=== PATIENT | female | born 1930 | race Caucasian/White ===

== ENCOUNTER 2017-06-13 19:01 | Inpatient (IN) | payer MEDICARE, OTHER ==
[~2017-06-13] VITALS: Ht 165.1 cm; Wt 70.3 kg
--- NOTE | 2017-06-13 19:30 | NUR ---
Received patient from day shift RN. Patient is a new admit from [facility] S/P Dandre placement of the left hip by Dr. Jean. Patient was admitted due to Left hip fx S/P fall. Patient is A/O x4, able to make needs known, with no signs of sob or acute distress. pertinent assessment completed. Vital signs stable upon admission. Oriented patient to unit. MD aware of patient's arrival to unit. Left hip incision clean, dry, with no s/s of infection or redness. Dressing clean & intact. Bed in low position x2 side rails up. Call light within reach of pt. Will continue to monitor pt through shift.
--- NOTE | 2017-06-13 20:15 | NUR ---
Dr. Mann in facility. Examined patient. MD made aware of patient's prescription order for [place] 5/325mg 1-2 tabs in admission packet. Per MD he will input new orders for patient. New orders in for Tramadol 50mg PO Q6HPRN and Percocet for 5-325mg 2 tablet Q6HPRN. New orders noted.
[2017-06-13] MEDS ORDERED: Z GUARD REMEDY PASTE 57 GM TUBE TOP PRN (21:00)
[2017-06-13] MEDS ORDERED: ERGO500014 PO (21:04)
[2017-06-13] MEDS ORDERED: ACET-2154 PO (21:04)
[2017-06-13] MEDS ORDERED: RIVA20TA PO (21:04)
[2017-06-13] MEDS ORDERED: SENN-167 PO (21:04)
--- NOTE | 2017-06-13 21:15 | NUR ---
Spoke with Dr. Olvera and made aware of new admission and med recon. Per MD, he will do med recon.
[2017-06-13 21:25] VITALS: BP 115/59
--- NOTE | 2017-06-13 21:30 | NUR ---
Patient refused removal of BLE dressing for assessment & photos. Will endorse to day shift RN to f/u with MD orders for removal & care of BLE S/P skin graft.
[2017-06-13] MEDS: OXYCODONE/APAP 5-325 MG TABLET PO PRN (21:35)
[2017-06-14] MEDS: TRAMADOL HCL 50 MG TABLET PO PRN ×2 (03:33→21:11)
--- NOTE | 2017-06-14 05:40 | NUR ---
Patient slept intermittently through shift. Some complaints of left hip pain. Administered pain meds as ordered per MD. vital signs remained WNL. All needs attended to. changed patient & kept clean, dry. Left wrist 20G IV removed. patient tolerated well. Left hip incision kept clean, dry, intact. changed left hip dressing. safety measures implemented. bed in low position, locked, x2 side rails up. call light within reach. will endorse to day shift RN.
[2017-06-14] MEDS: OXYCODONE/APAP 5-325 MG TABLET PO PRN ×3 (06:00→17:30)
[2017-06-14 07:05] LABS: BASOPHILS % (AUTO) 0.7 % (0.0-2.0); EOSINOPHILS # (AUTO) 0.3 K/uL (0.0-0.7); EOSINOPHILS % (AUTO) 5.9 % (0.0-7.0); HEMATOCRIT 24.5 % (31.2-41.9); HEMOGLOBIN 8.1 g/dL (10.9-14.3); LYMPHOCYTES # (AUTO) 1.2 K/uL (20.0-40.0); LYMPHOCYTES % (AUTO) 20.9 % (20.5-51.5); MEAN CORPUSCULAR HEMOGLOBIN 29.3 uug (24.7-32.8); MEAN CORPUSCULAR HGB CONC 33 g/dL (32.3-35.6); MONOCYTES # (AUTO) 0.7 K/uL (2.0-10.0); MONOCYTES % (AUTO) 12.4 % (0.0-11.0); NEUTROPHILS # (AUTO) 3.3 K/uL (1.8-8.9); NEUTROPHILS % (AUTO) 60.1 % (38.5-71.5); PLATELET COUNT (AUTO) 267 K/uL (179-408); RED BLOOD CELL COUNT(AUTO) 2.76 MIL/uL (3.63-4.92); WHITE BLOOD COUNT (AUTO) 5.5 K/uL (3.8-11.8)
[2017-06-14 07:11] LABS: CARBON DIOXIDE 28 mmol/L (21-32); CHLORIDE 104 mmol/L (98-107); CREATININE 0.9 mg/dL (0.6-1.3); GLUCOSE 104 mg/dL (74-106); MAGNESIUM 1.8 mg/dL (1.8-2.4); PHOSPHOROUS 4.3 mg/dL (2.5-4.9); POTASSIUM 4.1 mmol/L (3.5-5.1); UREA NITROGEN, BLOOD 13 mg/dL (7-18)
[2017-06-14 08:05] VITALS: BP 118/70
[2017-06-14] MEDS ORDERED: ACETAMINOPHEN 325 MG TABLET PO PRN (12:45)
[2017-06-14] MEDS: SENNOSIDES 1 TABLET PO SCH (14:10)
[2017-06-14] MEDS: RIVAROXABAN 10 MG TABLET PO SCH (17:26)
--- NOTE | 2017-06-14 19:30 | NUR ---
Received patient from day shift RN. Patient stable at start of shift, no acute distress noted. Daughter currently at bedside. pertinent assessment completed. Assessed left hip pain level at start of shift. no current pain noted. Vital signs WNL. Bed in low position x2 side rails up. call light within reach. will continue to monitor pt through shift.
[2017-06-14 20:20] VITALS: BP 120/64
[2017-06-15] MEDS: OXYCODONE/APAP 5-325 MG TABLET PO PRN ×4 (01:16→20:43)
[2017-06-15] MEDS: TRAMADOL HCL 50 MG TABLET PO PRN ×2 (05:18→13:31)
--- NOTE | 2017-06-15 05:38 | NUR ---
Complaints of left hip pain through the night. administered pain meds as ordered per MD. no acute distress noted. vital signs within normal limits. all needs attended to. medications administered as ordered. safety measures implemented. patient kept clean, dry. Bed chirinos offered as needed. Left hip incision kept clean, dry, intact. call light within reach. will endorse to day shift nurse.
[2017-06-15] MEDS: SENNOSIDES 1 TABLET PO SCH (09:05)
[2017-06-15] MEDS: ERGOCALCIFEROL 50,000 UNIT CAPSULE PO SCH (09:05)
[2017-06-15 09:46] VITALS: BP 132/65
--- NOTE | 2017-06-15 10:30 | NUR ---
F/U SURGICAL APPT SPOKE WITH MAGGI AT MD CABRALES'S OFFICE. AN APPT WAS SCHEDULED FOR 06/21/17 @3562. WITH MD SHINE [phone]. I ALSO ASKED HER RE: PT WEIGHT BEARING STATUS AND WHEN TO DO THE FIRST DRSG CHANGE. SHE SAYS SHE WILL CALL THE DOC AND HAVE HIM CALL ME BACK.
--- NOTE | 2017-06-15 14:37 | NUR ---
Water Pump Operator: Biopsychosocial Assessment SW met patient at bedside to assess her needs and provide support. Patient is an 86-year-old female admitted to ARU after hip surgery. Patient reports she was planing to move in with her daughter, but fell and broke her hip while she was visiting her. Mental Status: Patient appeared alert and oriented x4 during interview. She was cooperative and presented in anxious mood. She stated, "You never know in your home or outside if something is going to happen. I tell you as a mother to please be careful." Patient has been in the hospital since June 13, 2017. Social: Patient was living in her own home in [place], but was initially planning to move in with her daughter. However, her daughter's [place] apartment is on the second floor. Patient now plans to return home after discharge. Patient reports that her daughter is very supportive, but "should be able to live her own life." Patient has a list of caregivers she plans to interview when she returns home. Goals: Patient reports that the pain is "unbearable" and hopes that physical therapy becomes easier so that she can recover. Interventions: SW engaged in active listening. SW provided emotional support and counseling. SW will encourage patient to comply with rehab goals
--- NOTE | 2017-06-15 17:30 | NUR ---
Seen and examined by Dr. Nacho Mancini. Dr cleaned and dressed wound with Xeroform and dressing. Dr instructed to keep area dry and not to dress or open dressing, as Dr will be back on Monday to change dressing himself. Pictures taken, and documented accordingly.
--- NOTE | 2017-06-15 18:05 | NUR ---
ISOLATION PLACED ON ISOLATION D/T POSITIVE MRSA RESULTS CALLED IN FROM LAB. MOVED FROM ROOM 122A TO 124A FOR PRIVATE ROOM. EXPLAINED TO PT WHY SHE IS ON ISOLATION AND THE PROTOCOL FOR HER ISOLATION. SHE VERBALIZED UNDERSTANDING
[2017-06-15] MEDS: RIVAROXABAN 10 MG TABLET PO SCH (18:30)
[2017-06-15 19:30] VITALS: BP 116/57
--- NOTE | 2017-06-15 19:30 | NUR ---
Patient stable at start of shift. no acute distress noted. 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 Pertinent assessment completed. Left hip incision is clean, dry, intact with no s/s of redness or inflammation. BLE dressing intact & waiting on MD with orders for dressings. bed in low position, locked, x2 side rails up. call light within reach. will continue to monitor pt through shift.
[2017-06-15] MEDS: MUPIROCIN 2% OINT 22 GM TUBE NS SCH (20:43)
[2017-06-16] MEDS: OXYCODONE/APAP 5-325 MG TABLET PO PRN ×4 (03:49→21:55)
--- NOTE | 2017-06-16 05:46 | NUR ---
No acute distress noted. Complaints of left hip pain through shift. administered pain meds as ordered. needs attended to promptly. Left hip incision kept clean, dry, intact. no s/s of redness, inflammation, or infection. vital signs WNL. safety measures implemented. bed in low position, locked, x2 side rails up. call light within reach. will endorse to day shift nurse.
--- NOTE | 2017-06-16 08:18 | NUR ---
WOUND CARE CONSULT WOUND CARE RECEIVED CONSULT FOR LOWER EXTREMITIES VENOUS ULCERS. WOUND CARE WILL DEFER TO DPM DR PERRY AT THIS TIME FOR CONSULT AND TREATMENT PLAN HE IS CURRENTLY FOLLOWING. PATIENT WITH MECHELLE AT 16, ALL PRESSURE ULCER PREVENTION MEASURES NOTED TO BE IN PLACE AT THIS TIME.
[2017-06-16] MEDS: SENNOSIDES 1 TABLET PO SCH (08:40)
[2017-06-16] MEDS: MUPIROCIN 2% OINT 22 GM TUBE NS SCH ×2 (08:41→21:15)
[2017-06-16 09:04] VITALS: BP 125/61
[2017-06-16] MEDS: TRAMADOL HCL 50 MG TABLET PO PRN (11:38)
--- NOTE | 2017-06-16 14:33 | NUR ---
INTERDISCIPLINARY TEAM CONFERENCE
[2017-06-16] MEDS: RIVAROXABAN 10 MG TABLET PO SCH (16:31)
--- NOTE | 2017-06-16 17:42 | NUR ---
Patient is awake and alert, verbally responsive and able to make her needs known. Patient is on contact isolation for MRSA on the nares and was observed during all patient contact. Patient continues to be compliant with her plan of care and addressed all her concerns regarding her care plan, she verbalized understanding. Needs attended promptly and accordingly. Pain management provided and encourage her to increase oral intake of fluids. Call light place in easy reach at all times
--- NOTE | 2017-06-16 19:40 | NUR ---
Patient alert and awake on bed. Continuing on pain medication for left hip pain. dressing on BLE clean and intact. will continue to monitor.
[2017-06-16 20:38] VITALS: BP 124/52
[2017-06-17] MEDS: TRAMADOL HCL 50 MG TABLET PO PRN ×2 (03:30→12:00)
--- NOTE | 2017-06-17 06:49 | NUR ---
PATIENT SLEEPING INTERMITTENTLY, EASILY AROUSING TO VERBAL RESPONSE. NO C/O OF PAIN OR DISCOMFORT. DRESSING ON BLE IS CLEAN AND INTACT.
--- NOTE | 2017-06-17 06:54 | NUR ---
PATIENT SLEEPING INTERMITTENTLY, EASILY AROUSING TO VERBAL RESPONSE. NO C/O OF PAIN OR DISCOMFORT. DRESSING ON BLE IS CLEAN AND INTACT.CONTINUING ON CONTACT ISOLATION FRO MRSA OF NARES
--- NOTE | 2017-06-17 07:09 | NUR ---
NURSE NOTES: Received patient awake, alert and oriented, on bed. ON MRSA of the Nares precautions. Call light within reach. Needs were attended and anticipated. Will continue to monitor.
[2017-06-17] MEDS: OXYCODONE/APAP 5-325 MG TABLET PO PRN ×3 (07:51→20:38)
[2017-06-17 08:00] VITALS: BP 119/63
[2017-06-17] MEDS: MUPIROCIN 2% OINT 22 GM TUBE NS SCH ×2 (09:47→20:39)
[2017-06-17] MEDS: SENNOSIDES 1 TABLET PO SCH (09:47)
[2017-06-17 14:01] LABS: HEMATOCRIT 29.2 % (31.2-41.9); HEMOGLOBIN 9.3 g/dL (10.9-14.3)
[2017-06-17] MEDS: RIVAROXABAN 10 MG TABLET PO SCH (17:28)
--- NOTE | 2017-06-17 18:46 | NUR ---
NURSES NOTES: Patient remained stable throughout the shift. No SOB or distress noted. Pain medication given as ordered, tolerated well. Wound dressing clean dry and intact. Patient was able to participate with PT and OT, tolerated well the therapies. All needs were attended and anticipated. Call light within reach. Contact isolated for the MRSA of the Nares was observed at all times.
[2017-06-17 19:30] VITALS: BP 120/58
[2017-06-18] MEDS: OXYCODONE/APAP 5-325 MG TABLET PO PRN ×4 (03:25→21:52)
--- NOTE | 2017-06-18 07:40 | NUR ---
Patient stable at start of shift. no acute distress noted. 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 Pertinent assessment completed. Left hip incision is clean, dry, intact with no s/s of redness or inflammation. BLE dressing intact . bed in low position, locked, x2 side rails up. call light within reach. will continue to monitor pt through shift.
[2017-06-18] MEDS: SENNOSIDES 1 TABLET PO SCH (08:21)
[2017-06-18] MEDS: MUPIROCIN 2% OINT 22 GM TUBE NS SCH ×2 (08:22→21:10)
[2017-06-18 09:24] VITALS: BP 130/55
[2017-06-18] MEDS: RIVAROXABAN 10 MG TABLET PO SCH (16:32)
--- NOTE | 2017-06-18 16:55 | NUR ---
Patient slept intermittently through shift. Some complaints of left hip pain. Administered pain meds as ordered per MD. vital signs remained WNL. All needs attended to. safety measures implemented. bed in low position, locked, x2 side rails up. call light within reach.
[2017-06-18 19:30] VITALS: BP 114/54
--- NOTE | 2017-06-18 22:00 | NUR ---
Maintained on contact isolation for MRSA nares, pt education provided. Pt awake and alert, very talkative. Adequate pain relief from PO meds and nursing care. Dressings on left hip remain clean and intact; lina wrap bandages to bilateral lower extremities in place. Extremities with adequate sensation and circulation. Nursing comfort measures observed at all times. All needs and concerns met.
[2017-06-19] MEDS: OXYCODONE/APAP 5-325 MG TABLET PO PRN ×3 (05:16→17:45)
--- NOTE | 2017-06-19 06:00 | NUR ---
Stable, restful night. Able to sleep well. Pain/discomfort episodes relieved by nursing comfort measures and meds. Appreciative of care provided by staff. Needs encouragement to participate with care.
[2017-06-19 07:30] VITALS: BP 121/67
--- NOTE | 2017-06-19 10:00 | NUR ---
pt seen on rounding. pt continues to be stable. legs elevated due to venous insufficiency. pt contineus to tolerate room air. no signs of distress. pt given percocet for pain. will continue to monitor.
[2017-06-19] MEDS: MUPIROCIN 2% OINT 22 GM TUBE NS SCH ×2 (10:04→20:45)
[2017-06-19] MEDS: SENNOSIDES 1 TABLET PO SCH (10:06)
[2017-06-19] MEDS: RIVAROXABAN 10 MG TABLET PO SCH (17:24)
--- NOTE | 2017-06-19 19:07 | NUR ---
pt stable throughou the day. pt seen by cad draftsman. new orders on order history. dressing changes every monday and thr. will endorse to core piler nurse.
[2017-06-19 19:30] VITALS: BP 120/58
--- NOTE | 2017-06-19 19:45 | NUR ---
Received patient in the restroom with TELEVISION ANTENNA INSTALLER by her side. Vital signs taken and recorded, no signs of sob, or acute distress. Complained of pain 10/08. On going IV of Mg Sulfate 1 gram infusing well on her right wrist. Pertinent assessment completed. Safety measures provided, bed in low position x2 side rails up. call light placed within reach of pt. will continue to monitor pt through shift. Addendum: 06/20/17 at 0321 by MARIFER LOW RN WRONG DOCUMENTATION.
[2017-06-19] MEDS: TRAMADOL HCL 50 MG TABLET PO PRN (22:16)
[2017-06-20] MEDS: OXYCODONE/APAP 5-325 MG TABLET PO PRN ×4 (00:35→19:48)
[2017-06-20 08:00] VITALS: BP 117/62
[2017-06-20] MEDS: SENNOSIDES 1 TABLET PO SCH (09:26)
[2017-06-20] MEDS: MUPIROCIN 2% OINT 22 GM TUBE NS SCH ×2 (09:29→21:03)
--- NOTE | 2017-06-20 13:36 | NUR ---
SBAR report received, board updated. Pt assessed, no SOB evident, Pt reports pain being managed by PRN administration of Pain medication as ordered. Pt compliant with other routine administration of medications. Rash over chest observed, pictures taken and placed in chart. Pt reports sensitive skin and irritation common with new lotions such as provided by hospital. Pt requests to leave open to air to resolve. MD notified. Daughter visiting at bedside. Bed in locked and lowest position, with side rails up x2. All safety and comfort measures implemented. Call light and personal items placed within reach. Will continue to monitor and follow up.
[2017-06-20] MEDS: RIVAROXABAN 10 MG TABLET PO SCH (16:46)
--- NOTE | 2017-06-20 18:10 | NUR ---
Pt sitting up-right in bed comfortably. Daughter visited briefly this afternoon. Pt compliant with all scheduled medication administration. Pt denies discomfort at this time. Personal items and call light placed within reach. Bed in locked and lowest position with side rails up x2. Will continue to monitor and endorse to oncoming welder 2nd shift.
--- NOTE | 2017-06-20 19:30 | NUR ---
PT IN ROOM ALERT AWAKE IN NO ACUTE DISTRESS. STATES SHE JUST WANTED HER PERCOCET FOR HER PAIN TO LEFT LEG. PT REMAINS ON ISOLATION D/T MRSA NARES. PT AWARE TO ASK FOR ASSISTANCE WHEN NEEDED. DENIES ANY SOB OR HEADACHES AT THIS TIME. ABLE TO FOLLOW SIMPLE COMMANDS INCLUDING PASSIVE ROM TO UPPER AND RIGHT LOWER EXTREMITY. CALL LIGHT PLACED WITHIN REACH. CONTINUE TO MONITOR. PT AWARE TO ASK FOR ASSISTANCE WHEN NEEDED. ENCOURAGED PT DEEP BREATHING EXERCISES. VERBALIZED UNDERSTANDING.
[2017-06-20 20:48] VITALS: BP 118/53
[2017-06-21] MEDS: OXYCODONE/APAP 5-325 MG TABLET PO PRN ×3 (04:33→16:42)
--- NOTE | 2017-06-21 06:00 | NUR ---
PT IN ROOM ALERT AWAKE AND ORIENTED IN NO ACUTE DISTRESS. LESS PAIN STATED TO LEFT LEG D/T RECENT PERCOCET. MAINTAINING ISOLATION PRECAUTIONS. ENCOURAGED PT TO INCREASE FLUID INTAKE. NO S/S OF DRAINAGE OR ACTIVE BLEEDING TO DRESSINGS ON LEFT SIDE EXTREMITY. CONTINUE TO MONITOR. CALL LIGHT PLACED WITHIN REACH.
[2017-06-21 07:31] VITALS: BP 112/60
[2017-06-21] MEDS: MUPIROCIN 2% OINT 22 GM TUBE NS SCH ×2 (08:01→20:33)
[2017-06-21] MEDS: SENNOSIDES 1 TABLET PO SCH (08:01)
--- NOTE | 2017-06-21 08:04 | NUR ---
SBAR report received, board updated. Pt sitting upright for breakfast. Pt denies c/o pain and SOB at this time. Pt compliant with routinely scheduled medications. Bed repositioned, in locked and lowest position with side rails up x2. Personal belongings and call light placed within reach. Will continue to monitor.
[2017-06-21 08:07] LABS: BASOPHILS # (AUTO) 0.1 K/uL (0.0-8.0); EOSINOPHILS # (AUTO) 0.2 K/uL (0.0-0.7); EOSINOPHILS % (AUTO) 3.5 % (0.0-7.0); HEMATOCRIT 26.1 % (31.2-41.9); HEMOGLOBIN 8.6 g/dL (10.9-14.3); LYMPHOCYTES # (AUTO) 1.3 K/uL (20.0-40.0); LYMPHOCYTES % (AUTO) 24.8 % (20.5-51.5); MEAN CORPUSCULAR HEMOGLOBIN 29.4 uug (24.7-32.8); MEAN CORPUSCULAR HGB CONC 33 g/dL (32.3-35.6); MEAN CORPUSCULAR VOLUME 89.4 fL (75.5-95.3); MONOCYTES # (AUTO) 0.5 K/uL (2.0-10.0); MONOCYTES % (AUTO) 9.7 % (0.0-11.0); NEUTROPHILS # (AUTO) 3.2 K/uL (1.8-8.9); PLATELET COUNT (AUTO) 361 K/uL (179-408); RED BLOOD CELL COUNT(AUTO) 2.92 MIL/uL (3.63-4.92); WHITE BLOOD COUNT (AUTO) 5.3 K/uL (3.8-11.8)
[2017-06-21 08:27] LABS: THYROID STIMULATING HORMONE 1.731 mIU/mL (0.358-3.740)
[2017-06-21 08:49] LABS: ALANINE AMINOTRANSFERASE 18 U/L (14-59); ALKALINE PHOSPHATASE 125 U/L (50-136); ASPARTATE AMINOTRANSFERASE 25 U/L (15-37); BILIRUBIN,TOTAL 0.5 mg/dL (0.2-1.0); CARBON DIOXIDE 30 mmol/L (21-32); CHLORIDE 103 mmol/L (98-107); CHOLESTEROL 160 mg/dL (<200); CREATININE 0.9 mg/dL (0.6-1.3); GLUCOSE 97 mg/dL (74-106); HDL CHOLESTEROL 37 mg/dL (40-60); MAGNESIUM 2.1 mg/dL (1.8-2.4); PHOSPHOROUS 4.2 mg/dL (2.5-4.9); POTASSIUM 4.4 mmol/L (3.5-5.1); TRIGLYCERIDES 195 MG/DL (30-150); UREA NITROGEN, BLOOD 17 mg/dL (7-18)
[2017-06-21] MEDS ORDERED: MEMANTINE HCL 10 MG TABLET PO SCH (09:00)
[2017-06-21 11:16] LABS: IRON, SERUM 30 ug/dL (50-175)
[2017-06-21] MEDS: RIVAROXABAN 10 MG TABLET PO SCH (18:12)
--- NOTE | 2017-06-21 19:30 | NUR ---
Received patient sitting up in bed. Alert and verbally responsive. Able to make needs known. Denies any pain and discomfort. No acute distress. No SOB. Kept clean and dry. All needs attended to promptly. Call light within reach. Will continue to monitor.
--- NOTE | 2017-06-21 20:00 | NUR ---
Pt clean dry and resting comfortably. All needs attended to. Call light within reach. Will endorse to oncoming night shift manager.
[2017-06-21 20:08] VITALS: BP 112/48
--- NOTE | 2017-06-21 20:30 | NUR ---
Changed patient dressing on left hip. Tolerated well. Surgical site intact. No s/s of infection. Kept clean and dry. All needs attended to promptly. Call light within reach. Will continue to monitor.
--- NOTE | 2017-06-21 21:00 | NUR ---
Received phone call from daughter Deena expressing her concerns regarding her mom not receiving BP medication Metoprolol because patient had an episode of Afib prior to having left hip surgery. Verbalized to daughter that BP medication was not continued when she arrived to ARU and that whatever new prescriptions was given to us upon admission was what she was getting. Daughter noted to be very upset. Explained to daughter that patient's BP and HR have been stable while here in rehab and patient hasn't been in any acute distress, but daughter still noted to be very concerned. Daughter verbalized that she has a Foundry Worker in [place], Dr. Vargas and that patient has been taking this BP medication for 3 years. Told her patient was getting Metoprolol 25mg PO BID at [facility] per medication record, but per daughter, patient was only taking half of that during the day and in the evening. Verbalized to daughter that I would speak with MD regarding the situation. Daughter verbalizes understanding at this time.
--- NOTE | 2017-06-21 21:05 | NUR ---
Contacted Dr. Barclay and per he will come to the unit.
--- NOTE | 2017-06-21 23:30 | NUR ---
Dr. Barclay in [facility]. Explained to MD about daughters concern regarding patient's BP medication. MD with new orders for Metoprolol 12.5mg PO Q12h. Addendum: 06/21/17 at 2353 by FABIAN MCCOY RN New orders noted and carried out.
[2017-06-22 00:19] LABS: *OCCULT BLOOD STOOL NEGATIVE (NEGATIVE)
[2017-06-22] MEDS: OXYCODONE/APAP 5-325 MG TABLET PO PRN ×4 (00:25→18:16)
--- NOTE | 2017-06-22 06:53 | NUR ---
Patient slept comfortably throughout the night. Got up intermittently c/o pain throughout the night. Pain medication given as ordered. Assisted patient with bedpan. Staff encouraged her to use the restroom, but per patient "I'm in a lot of pain, I'll go to the bathroom tomorrow." Kept clean and dry. All needs attended to promptly. Call light within reach. Will continue to monitor.
--- NOTE | 2017-06-22 07:49 | NUR ---
received report from night nurse. patient stable, awake, sitting up in bed upon initial assessment. patient requesting bed bath before dressing changes are done today. informed patient a plan will be made to have all cares met. call light noted within reach, will continue to monitor.
[2017-06-22 08:28] VITALS: BP 123/58
[2017-06-22] MEDS: MUPIROCIN 2% OINT 22 GM TUBE NS SCH (09:35)
[2017-06-22] MEDS: ERGOCALCIFEROL 50,000 UNIT CAPSULE PO SCH (09:35)
[2017-06-22] MEDS: METOPROLOL TARTRATE 25 MG TABLET PO SCH ×2 (09:36→21:00)
[2017-06-22] MEDS: SENNOSIDES 1 TABLET PO SCH (09:36)
[2017-06-22] MEDS: TRAMADOL HCL 50 MG TABLET PO PRN (09:42)
[2017-06-22] MEDS: RIVAROXABAN 10 MG TABLET PO SCH (17:47)
--- NOTE | 2017-06-22 19:07 | NUR ---
patient stable at this time. resting comfortably in bed, no s.s acute distress. call light within reach. will monitor
--- NOTE | 2017-06-22 19:45 | NUR ---
Received pt in bed, AAO x 4 with daughter at bedside. No acute distress noted. Verbally responsive and able to make needs known. Denies pain or discomfort at this time. All safety measures and fall precautions maintained. Call light and all personal belongings within reach. Will continue to monitor.
[2017-06-22 20:22] VITALS: BP 114/49
[2017-06-23] MEDS: OXYCODONE/APAP 5-325 MG TABLET PO PRN ×3 (04:21→17:40)
[2017-06-23 08:00] VITALS: BP 120/46
--- NOTE | 2017-06-23 08:00 | NUR ---
Received patient awake, alert, verbally responsive, coherent, not in any form of acute distress. She denies any pain or discomfort at this time. Call light placed within reach. Reminded to use call light for assistance with verbalized understanding. Assisted to her needs.
[2017-06-23] MEDS: FERROUS GLUCONATE 324 MG TABLET PO SCH (09:19)
[2017-06-23] MEDS: SENNOSIDES 1 TABLET PO SCH (09:24)
[2017-06-23] MEDS: METOPROLOL TARTRATE 25 MG TABLET PO SCH ×2 (09:24→20:38)
--- NOTE | 2017-06-23 12:10 | NUR ---
notified Dr.Schachter Griffith regarding status of pts bilateral lower extremeties wound odor as per endordement from combination saw operator and as noted at present,no significant change of odor compared to wound care provided on 06/19/17 by .Per , nothing to be alarmed if pts wound manifest some odor and stated to continue dressing change schedule as ordered.
--- NOTE | 2017-06-23 13:47 | NUR ---
INTERDISCIPLINARY TEAM CONFERENCE
[2017-06-23] MEDS: TRAMADOL HCL 50 MG TABLET PO PRN (14:51)
--- NOTE | 2017-06-23 16:00 | NUR ---
resident provided with surgical wound care as ordered,pt tolerated well.Surgical wound site with no s/sx of infection.All needs anticipated and met.Call light placed within easy reach.
[2017-06-23] MEDS: RIVAROXABAN 10 MG TABLET PO SCH (17:18)
[2017-06-23 19:30] VITALS: BP 113/54
--- NOTE | 2017-06-23 19:45 | NUR ---
Received pt in bed, AAO x4 watching television, no acute distress noted. Verbally responsive and able to make needs known. Denies pain or discomfort at this time. All safety measures and fall precautions maintained. Call light and all personal belongings within reach. Will continue to monitor.
[2017-06-24] MEDS: OXYCODONE/APAP 5-325 MG TABLET PO PRN ×3 (01:45→20:14)
[2017-06-24 07:00] VITALS: BP 117/70
--- NOTE | 2017-06-24 07:38 | NUR ---
Patient awake,alert, responsive to stimuli.No s/sx of distress,breathing even and unlabored. Call light within easy reach,needs attended and met.
[2017-06-24] MEDS: FERROUS GLUCONATE 324 MG TABLET PO SCH (09:07)
[2017-06-24] MEDS: METOPROLOL TARTRATE 25 MG TABLET PO SCH ×2 (09:07→20:14)
[2017-06-24] MEDS: TRAMADOL HCL 50 MG TABLET PO PRN (09:08)
[2017-06-24] MEDS: SENNOSIDES 1 TABLET PO SCH (09:08)
[2017-06-24] MEDS: RIVAROXABAN 10 MG TABLET PO SCH (17:09)
--- NOTE | 2017-06-24 19:50 | NUR ---
Pt resting in bed and watching TV. AAO x4. Pt complaining of pain 10/10 on left hip. Will f/u with intervention. MRSA negative. No acute distress noted. No c/o pain or discomfort. Safety measures maintained. Call light and personal belongings within reach. Will continue to monitor.
[2017-06-24 20:40] VITALS: BP 124/57
[2017-06-25] MEDS: OXYCODONE/APAP 5-325 MG TABLET PO PRN ×4 (02:35→21:30)
--- NOTE | 2017-06-25 05:49 | NUR ---
Pt slept intermittently at night. VSS. notified during rounds last night regarding odor coming from pt's legs during wound care. MD put in an order for IV antibiotic and for labs to be drawn today. Pt c/o pain 10/10 on left hip and bilateral legs. Interventions were followed and meds given per MD's order. All needs attended to promptly. Assisted with bedpan as needed. Will endorse to day shift RN. Continue to monitor.
--- NOTE | 2017-06-25 05:56 | NUR ---
Pt slept intermittently at night. VSS. Meds given per MD's order. Pt compliant. All needs attended to promptly. Assisted with bed chirinos as needed. Will endorse to day shift RN. Continue to monitor.
--- NOTE | 2017-06-25 08:00 | NUR ---
Received patient awake, alert x4. With pain over left hip and leg rated as 10/10. On room air, not in any form of distress. Dressing over lower extremities intact. Call light within reach.
[2017-06-25] MEDS: FERROUS GLUCONATE 324 MG TABLET PO SCH (08:18)
[2017-06-25] MEDS: SENNOSIDES 1 TABLET PO SCH (08:18)
[2017-06-25] MEDS: METOPROLOL TARTRATE 25 MG TABLET PO SCH ×2 (08:19→20:35)
--- NOTE | 2017-06-25 09:00 | NUR ---
PRN pain medication given. Up with occupational therapy. Tolerating therapy well.
[2017-06-25 10:04] VITALS: BP 125/53
--- NOTE | 2017-06-25 16:29 | NUR ---
Dressing changed over surgical incision, no drainage noted. However redness over tape noted. ABD pad with paper tape dressing used.
[2017-06-25] MEDS: RIVAROXABAN 10 MG TABLET PO SCH (17:31)
[2017-06-25] MEDS: HYDROCORTISONE 1% CREAM 30 GM TUBE TP PRN (18:49)
--- NOTE | 2017-06-25 19:15 | NUR ---
Pt resting comfortably in bed. AAO x4. No acute distress noted. No c/o pain or discomfort at this time. Performed wound care and dressing changed on both legs with help of day shift RN. Pictures taken. Pt has ortho appointment with Dr. Melendez tomorrow, ambulanz will bead picker pt at 1pm. Other instructions in chart. Safety measures maintained. Call light and personal belongings within reach. Will continue to monitor.
[2017-06-25 21:58] VITALS: BP 117/50
[2017-06-26] MEDS ORDERED: VANCOMYCIN IV 1,000 MG in IV DEXTROSE 5% 250 ML IV SCH (01:00)
[2017-06-26] MEDS: OXYCODONE/APAP 5-325 MG TABLET PO PRN ×4 (04:08→23:05)
[2017-06-26] MEDS ORDERED: PIPERACILLIN/TAZOBACTAM/D5W 3.375 G in PREMIXED 1 EACH IV SCH (06:00)
--- NOTE | 2017-06-26 06:10 | NUR ---
Pt refusing IV Zosyn and stated that she does not want to have antibiotic here because she wants to go to her doctor from [facility] when gets discharged from here on Monday as this doctor knows her condition well enough. Risks and benefits explained. Teachings provided regarding medication, situation, and plan of care. Pt insisting that she told MD during rounds that she does not want to take antibiotic at this time. Will continue to monitor pt.
--- NOTE | 2017-06-26 07:30 | NUR ---
Received awake, alert/oriented x3, on RA, no sob noted , respiration even and unlabored, V/s stable, no c/o pain at this time. Will continue to monitor for safety and needs.
[2017-06-26 08:23] LABS: BASOPHILS # (AUTO) 0.1 K/uL (0.0-8.0); BASOPHILS % (AUTO) 1.3 % (0.0-2.0); EOSINOPHILS # (AUTO) 0.2 K/uL (0.0-0.7); HEMATOCRIT 26.5 % (31.2-41.9); HEMOGLOBIN 8.5 g/dL (10.9-14.3); LYMPHOCYTES # (AUTO) 1.3 K/uL (20.0-40.0); LYMPHOCYTES % (AUTO) 29.9 % (20.5-51.5); MEAN CORPUSCULAR HEMOGLOBIN 28.6 uug (24.7-32.8); MEAN CORPUSCULAR HGB CONC 32 g/dL (32.3-35.6); MEAN CORPUSCULAR VOLUME 89.4 fL (75.5-95.3); MONOCYTES # (AUTO) 0.5 K/uL (2.0-10.0); MONOCYTES % (AUTO) 10.9 % (0.0-11.0); NEUTROPHILS # (AUTO) 2.4 K/uL (1.8-8.9); NEUTROPHILS % (AUTO) 52.9 % (38.5-71.5); PLATELET COUNT (AUTO) 353 K/uL (179-408); RED BLOOD CELL COUNT(AUTO) 2.96 MIL/uL (3.63-4.92); WHITE BLOOD COUNT (AUTO) 4.5 K/uL (3.8-11.8)
[2017-06-26 08:43] LABS: ALANINE AMINOTRANSFERASE 14 U/L (14-59); ALKALINE PHOSPHATASE 128 U/L (50-136); ASPARTATE AMINOTRANSFERASE 19 U/L (15-37); BILIRUBIN,TOTAL 0.4 mg/dL (0.2-1.0); CARBON DIOXIDE 30 mmol/L (21-32); CHLORIDE 104 mmol/L (98-107); CREATININE 0.9 mg/dL (0.6-1.3); GLUCOSE 95 mg/dL (74-106); PHOSPHOROUS 3.9 mg/dL (2.5-4.9); POTASSIUM 4.2 mmol/L (3.5-5.1); TOTAL PROTEIN, SERUM 7.1 g/dL (6.4-8.2); UREA NITROGEN, BLOOD 16 mg/dL (7-18)
[2017-06-26] MEDS: FERROUS GLUCONATE 324 MG TABLET PO SCH (09:38)
[2017-06-26] MEDS: SENNOSIDES 1 TABLET PO SCH (09:38)
[2017-06-26] MEDS: METOPROLOL TARTRATE 25 MG TABLET PO SCH ×2 (09:39→20:47)
--- NOTE | 2017-06-26 11:23 | NUR ---
Patient assisted with adl's, bed bath given, assisted with dressing. Patient c/o left hip pain at 10, percocet 2 tabs given at 1038, will reassess in an hour. Ambulates with PT, tolerated well.
[2017-06-26] MEDS: SULFAMETH/TRIMETH 800/160 MG TABLET PO SCH (16:27)
[2017-06-26] MEDS: RIVAROXABAN 10 MG TABLET PO SCH (16:32)
--- NOTE | 2017-06-26 17:45 | NUR ---
Patient back to the unit at 1550, was moved to room 101. Patient c/o left hip pain at 02/07, percocet was given. Addendum: 06/26/17 at 1753 by MEJIA MEDINA RN Percocet 2 tabs was given at 1627 for hip pain at 02/07, reassessed in an hour, pain 07/08. Left hip with steri strips open to air. Will continue to monitor .
--- NOTE | 2017-06-26 19:30 | NUR ---
Pt resting comfortably in bed. AAO x4. No acute distress noted. C/o pain on surgical site and both legs stasis. Will f/u with intervention. Safety measures maintained. Call light and personal belongings within reach. Will continue to monitor.
[2017-06-26 20:00] VITALS: BP 113/44
[2017-06-26] MEDS: HYDROCORTISONE 1% CREAM 30 GM TUBE TP PRN (23:04)
--- NOTE | 2017-06-27 01:48 | NUR ---
Consent form for right lower extremity debridement refused. Pt stated that she already told this to MD. Will continue to monitor.
[2017-06-27] MEDS: OXYCODONE/APAP 5-325 MG TABLET PO PRN (05:28)
--- NOTE | 2017-06-27 05:54 | NUR ---
Pt slept intermittently at night. VSS. Meds given per MD's order. All needs attended to promptly. Assisted to use bed chirinos as needed. Pt to be discharge today. Will endorse to day shift RN. Continue to monitor.
[2017-06-27 08:33] VITALS: BP 130/60
[2017-06-27] MEDS: FERROUS GLUCONATE 324 MG TABLET PO SCH (08:58)
[2017-06-27] MEDS: SENNOSIDES 1 TABLET PO SCH (08:59)
[2017-06-27] MEDS: SULFAMETH/TRIMETH 800/160 MG TABLET PO SCH (08:59)
[2017-06-27 09:00] VITALS: BP 130/60
[2017-06-27] MEDS: METOPROLOL TARTRATE 25 MG TABLET PO SCH (09:00)
--- NOTE | 2017-06-27 09:02 | NUR ---
SBAR report received, board updated. Pt assessed, awake, alert, and oriented. No acute distress or pain at this time. Pt compliant with all routine medication administration. Bed in locked and lowest position. Call light placed within reach. Discharge order received. Will continue to monitor.
--- NOTE | 2017-06-27 11:13 | NUR ---
Discharge paperwork reviewed with Pt and daughterDeena. Pt signed and copies placed in chart. Incisional photos updated. No home medications to return. Rx list reviewed with both daughter and Pt. All discharge concerns addressed. All safety and comfort needs attended to. Plan of care regarding home healthcare discussed. Pt daughter will schedule additional appointment with Dr. Jean. All belongings accounted for with daughter as witness. ID band removed. Pt safely escorted out and transferred into private vehicle with daughter. Will remove from system shortly.
== END 2017-06-27 11:00 | disposition home health service (06) | DRG 559 ==
PROVIDERS: ADMIT Physical Medicine & Rehabilitation Pain Medicine; ATTEND Physical Medicine & Rehabilitation Pain Medicine
DX: S72.142D Displaced intertrochanteric fracture of left femur, subsequent encounter for closed fracture with routine healing (principal); E43 Unspecified severe protein-calorie malnutrition; D68.59 Other primary thrombophilia; I27.20 Pulmonary hypertension, unspecified; I11.0 Hypertensive heart disease with heart failure; I48.0 Paroxysmal atrial fibrillation; I50.32 Chronic diastolic (congestive) heart failure; I83.009 Varicose veins of unspecified lower extremity with ulcer of unspecified site; L97.929 Non-pressure chronic ulcer of unspecified part of left lower leg with unspecified severity; L97.919 Non-pressure chronic ulcer of unspecified part of right lower leg with unspecified severity; D63.8 Anemia in other chronic diseases classified elsewhere; I10 Essential (primary) hypertension; W18.30XD Fall on same level, unspecified, subsequent encounter; R26.9 Unspecified abnormalities of gait and mobility; D50.9 Iron deficiency anemia, unspecified; E55.9 Vitamin D deficiency, unspecified; I25.10 Atherosclerotic heart disease of native coronary artery without angina pectoris; I34.0 Nonrheumatic mitral (valve) insufficiency; I73.9 Peripheral vascular disease, unspecified; R73.03 Prediabetes
CPT/HCPCS: 36415; 71045; 82306; 83550; 83735; 84100; 84443; 85018; 85025; 92526; 92610; 97110; 97112; 97116; 97165; 97530; 97535; A4217; J2543